=== PATIENT | female | born 1985 | race Caucasian/White ===

== ENCOUNTER 2017-11-26 19:36 | Emergency (ER) | payer OTHER | END 2017-11-26 21:08 | disposition home or self-care (01) | LOC: E/R 21:08 | DX: R11.10 Vomiting, unspecified (principal) | CPT/HCPCS: 99283; Z7502 ==

== ENCOUNTER 2018-06-29 05:57 | Day surgery (SDC) | payer OTHER ==
[2018-06-29] MEDS ORDERED: PROPOFOL 40 ML (06:56)
[2018-06-29] MEDS ORDERED: MIDAZOLAM 1 MG/ML 2 ML INJ (06:57)
[2018-06-29] MEDS ORDERED: FENTAnyl 50 MCG/ML VIAL ×2 (06:57→08:54)
[2018-06-29] MEDS ORDERED: ONDANSETRON 4 MG INJ (06:57)
[2018-06-29] MEDS ORDERED: LIDOCAINE 2% (SDV) 5 ML INJ (06:57)
[2018-06-29] MEDS ORDERED: ROCURONIUM 50 MG INJ (06:57)
[2018-06-29] MEDS ORDERED: DEXAMETHASONE 4 MG/ML 1 ML INJ (06:58)
[2018-06-29] MEDS ORDERED: FAMOTIDINE 20 MG INJ (06:58)
[2018-06-29] MEDS: LACTATED RINGER'S 1,000 ML IV* ×2 (06:58→06:59)
[2018-06-29] MEDS ORDERED: CEFAZOLIN 1 GM INJ (07:00)
[2018-06-29 07:34] LABS: ADD UMIC NO; UR ASCORBIC ACID NEGATIVE (NEGATIVE); UR BILIRUBIN (Dip) NEGATIVE (NEGATIVE); UR BLOOD (Dip) NEGATIVE (NEGATIVE); UR CLARITY CLEAR (CLEAR); UR COLOR YELLOW (YELLOW); UR GLUCOSE (Dip) NEGATIVE (NEGATIVE); UR KETONES (Dip) NEGATIVE (NEGATIVE); UR LEUKOCYTE ESTERASE (Dip) NEGATIVE Leu/ul (NEGATIVE); UR NITRITE (Dip) NEGATIVE (NEGATIVE); UR SPECIFIC GRAVITY (Dip) 1.021 (1.003-1.030); UR TOTAL PROTEIN (Dip) NEGATIVE (NEGATIVE); UR UROBILINOGEN (Dip) NEGATIVE (NEGATIVE)
[2018-06-29] MEDS ORDERED: ACETAMINOPHEN 1000MG/100ML IV 100 ML (07:37)
[2018-06-29] MEDS ORDERED: SUGAMMADEX SODIUM 200 MG/2 ML VIAL IV (08:27)
[2018-06-29] MEDS: BUPIVACAINE 0.5%/EPI (SDV) 30 ML INJ (08:30)
[2018-06-29] MEDS ORDERED: LACTATED RINGER'S 1,000 ML IV (08:49)
[2018-06-29] MEDS: FENTAnyl 50 MCG/ML VIAL IV ×4 (08:59→09:16)
[2018-06-29] MEDS ORDERED: DIPHENHYDRAMINE 50 MG INJ IV (09:00)
[2018-06-29] MEDS ORDERED: HYDROmorphONE 1 MG/5 ML IV SYRINGE IV (09:00)
[2018-06-29] MEDS ORDERED: morphine (1 MG/ML) 10ML SYRINGE IV (09:00)
[2018-06-29] MEDS ORDERED: morphine 2 MG INJ IV (09:00)
[2018-06-29] MEDS ORDERED: OXYCODONE/ACETAMINOPHEN (5/325) TAB PO ×2 (09:00)
[2018-06-29] MEDS ORDERED: ONDANSETRON 4 MG INJ IV ×2 (09:00)
[2018-06-29] MEDS: ACETAMINOPHEN 325 MG TAB PO (10:03)
== END 2018-06-30 11:00 | disposition home or self-care (01) ==
LOC: SDS 05:57
DX: Z30.2 Encounter for sterilization (principal); E66.9 Obesity, unspecified
CPT/HCPCS: 58670; 81003

== ENCOUNTER 2018-08-05 16:31 | Emergency (ER) | payer OTHER ==
[2018-08-05 18:31] LABS: URINE BLOOD (Dip) POC 3+ (NEGATIVE); URINE GLUCOSE (Dip) POC Negative (NEGATIVE); URINE KETONES (Dip) POC Trace (NEGATIVE); URINE LEUKOCYTE EST (Dip) POC Negative (NEGATIVE); URINE NITRITE (Dip) POC Positive (NEGATIVE); URINE TOTAL PROTEIN POC 2+ (NEGATIVE)
[2018-08-05 18:46] LABS: ADD MAN DIFF? NO
[2018-08-05 18:50] LABS: BASOPHILS % 0.3 % (0.0-2.0); EOSINOPHILS # 0.1 10^3/ul (0.0-0.5); EOSINOPHILS % 1.1 % (0.0-7.0); HEMATOCRIT 40.3 % (37.0-47.0); HEMOGLOBIN 13.7 g/dl (12.0-16.0); LYMPHOCYTES # 3.5 10^3/ul (0.8-2.9); LYMPHOCYTES % 30.5 % (15.0-51.0); MEAN CORPUSCULAR VOLUME 82.2 fl (82.0-101.0); MEAN PLATELET VOLUME 10.6 fl (7.4-10.4); MONOCYTE # 0.6 10^3/ul (0.3-0.9); MONOCYTES % 4.9 % (0.0-11.0); NEUTROPHIL # 7.2 10^3/ul (1.6-7.5); PLATELET COUNT 273 10^3/UL (140-415); RED CELL DISTRIBUTION WIDTH 12.6 % (11.5-14.5)
[2018-08-05 18:50] LABS: WHITE BLOOD COUNT 11.4 10^3/ul (4.8-10.8)
== END 2018-08-05 22:10 | disposition home or self-care (01) ==
LOC: FTE 16:31
DX: N93.9 Abnormal uterine and vaginal bleeding, unspecified (principal); R10.2 Pelvic and perineal pain
CPT/HCPCS: 36415; 76830; 76856; 81003; 81025; 85025; 86900; 86901; 99284-25